=== PATIENT | male | born 1965 | race Caucasian/White ===

== ENCOUNTER 2016-08-17 18:18 | Observation (INO) | payer OTHER ==
[2016-08-17] MEDS ORDERED: NS 0.9% 1000 ML* 1,000 ML IV ONE (18:41)
[2016-08-17] MEDS ORDERED: HYDROmorphone* 1 MG/ML 1 ML SYR IV ONE (18:41)
[2016-08-17] MEDS ORDERED: Ondansetron INJ* 2 MG/ML VIAL IV ONE (18:41)
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
[2016-08-17] MEDS ORDERED: Tetan/Diph/Pertus SYR(Tdap)* 0.5 ML SYR(BOOSTRIX) use SYR IM ONE (20:45)
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
[2016-08-17] MEDS ORDERED: Ondansetron INJ* 2 MG/ML VIAL ONE (22:52)
[2016-08-17] MEDS ORDERED: Lidocaine 2% PF * 5 ML VIAL ONE (22:52)
[2016-08-17] MEDS ORDERED: Cisatracurium* 2 MG/ML MDV 5 ML ONE (22:52)
[2016-08-17] MEDS ORDERED: Propofol* 10 MG/ML 20 ML BTL IV PUSH ONE ×2 (22:52→23:32)
[2016-08-17] MEDS ORDERED: Ketorolac INJ* 30 MG/ML 1 ML VIAL ONE (22:52)
[2016-08-17] MEDS ORDERED: Midazolam* 1 MG/ML 5 ML VIAL (5 MG) ONE (22:52)
[2016-08-17] MEDS ORDERED: Dexamethasone IV* 4 MG/ML 1 ML (4 MG) ONE (22:52)
[2016-08-17] MEDS ORDERED: KETAMINE HCL* 50 MG/ML 10 ML VIAL ONE (22:52)
[2016-08-17] MEDS ORDERED: fentaNYL* 50 MCG/ML 5 ML VIAL (250 MCG VIAL) ONE (22:52)
[2016-08-17] MEDS ORDERED: ceFAZolin 2 GM PREMIX(*) 2 GM/50 ML BAG IVPB ONE (23:07)
[2016-08-17] MEDS ORDERED: Bacitracin IV* 50,000 UNITS INJ ONE (23:07)
[2016-08-17] MEDS ORDERED: EPHEDrine (Pressors)* 50 MG/ML VIAL ONE (23:41)
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
[2016-08-17] MEDS ORDERED: Glycopyrrolate IV* 0.2 MG/ML 1 ML VIAL ONE (23:56)
[2016-08-17] MEDS ORDERED: Neostigmine Methylsulfate* 2 MG/2 ML SYRINGE ONE (23:56)
[2016-08-17] MEDS ORDERED: HYDROmorphone* 1 MG/ML 1 ML SYR ONE (23:57)
[2016-08-18] MEDS ORDERED: Ondansetron INJ* 2 MG/ML VIAL IV PRN ×2 (00:38→07:52)
[2016-08-18] MEDS ORDERED: DiMENhydriNATE IV* 50 MG/ML VIAL IV PUSH PRN (00:38)
[2016-08-18] MEDS ORDERED: HYDROmorphone* 1 MG/ML 1 ML SYR IV PRN (00:38)
[2016-08-18] MEDS ORDERED: fentaNYL* 50 MCG/ML 2 ML VIAL (100 MCG VIAL) IV PRN (00:38)
[2016-08-18] MEDS ORDERED: oxyCODONE/Acetamin 5/325 MG* TAB PO PRN ×3 (01:28→08:09)
[2016-08-18] MEDS ORDERED: ZOSYN 3.375 GM Q8H per EXTENDED INFUSION IVPB SCH ×2 (02:00)
[2016-08-18] MEDS: ZOSYN 3.375 GM Q6H - Intermittant 30 min Infusion IVPB SCH ×8 (02:44→20:48)
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
[2016-08-18 05:53] LABS: Hematocrit 41 % (42-52); Hemoglobin 13.7 g/dl (14.0-18.0); Mean Corpuscular HGB Conc 33 g/dl (31-36); Mean Corpuscular Hemoglobin 30 pg (27-31); Mean Corpuscular Volume 90 fL (80-94); Mean Platelet Volume 9 um3 (7.4-10.4); Red Cell Distribution Width 12 % (10.5-15); White Blood Count 10.8 10^3/ul (3.5-10.8)
[2016-08-18 06:04] LABS: Albumin 3.6 g/dL (3.2-5.2); BUN/Creatinine Ratio 12.6 (8-20); Calcium 8.7 mg/dL (8.6-10.3); EGFR African American 89.8 (>60); EGFR Non-African American 69.8 (>60); Globulin 2.5 g/dL (2-4); Potassium 3.9 mmol/L (3.5-5.0); Total Bilirubin 0.6 mg/dL (0.2-1.0); Total Protein 6.1 g/dL (6.4-8.9)
[2016-08-18] MEDS: ceFAZolin VIAL(*) 1 GM in NS 0.9% 50 ML* 50 ML IVPB SCH ×3 (06:22→22:31)
--- NOTE | 2016-08-18 06:42 | HP ---
NO DICTATION. [id number]/[facility] #: [id number] [facility]
[2016-08-18] MEDS ORDERED: Morphine INJ* 4 MG/ML 1 ML SYRINGE IV PRN (07:52)
[2016-08-18] MEDS ORDERED: Ondansetron TAB* 4 MG PO PRN (07:52)
[2016-08-18] MEDS ORDERED: diPHENhydraMINE IV* 50 MG/ML 1 ml VIAL (BENADRYL) IV PRN (07:52)
[2016-08-18] MEDS ORDERED: Bisacodyl SUPP* 10 MG SUPP PR PRN (07:52)
[2016-08-18] MEDS ORDERED: Magnesium Hydroxide LIQ* 30 ML UDC PO PRN (07:52)
[2016-08-18] MEDS ORDERED: D5W 1/2 NS 1000 ML BAG* 1,000 ML IV SCH (08:00)
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
[2016-08-18] MEDS ORDERED: Enoxaparin(*) 30 MG/0.3 ML SYR SUBCUT SCH (09:00)
[2016-08-18] MEDS: Vitamin THERAPEUTIC TAB PO SCH (09:16)
[2016-08-18] MEDS: Docusate CAP* 100 MG PO SCH ×2 (09:16→20:44)
--- NOTE | 2016-08-18 09:24 | RAD ---
Indication: Left hand pain. 3 views of left hand demonstrates no fracture or dislocation. Joint spaces are well-preserved. There may be some minimal intercarpal degenerative changes between the scaphoid and trapezium. IMPRESSION: No definite fracture of the left hand is identified.
--- NOTE | 2016-08-18 09:25 | RAD ---
Indication: Left shoulder pain. 4 views of left shoulder demonstrates AC joint arthritis. There is no fracture or dislocation. No other bone or joint abnormality is identified. IMPRESSION: No fracture of the left hand is noted.
--- NOTE | 2016-08-18 09:25 | RAD ---
Indication: Left wrist injury. 2 views of left wrist demonstrates no fracture or dislocation. No other bone or joint abnormality is noted. There is a cast in the lateral aspect of the wrist which obscures bony detail. IMPRESSION: No fracture is definitively identified.
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
[2016-08-18] MEDS ORDERED: traMADol TAB* 50 MG PO PRN (11:34)
--- NOTE | 2016-08-18 12:06 | RAD ---
Indication: Preoperative planning for internal fixation LEFT elbow fracture. Limitation in extension. Comparison: August 17, 2016 radiographs. Technique: Noncontrast CT LEFT elbow. Multiplanar reformation. Report: Comminuted fracture through the trochlear notch and olecranon process of the ulna. Compound fracture with subcutaneous gas and gas intervening between the intra-articular fracture fragments of the olecranon. Additionally a piece of gauze extends into the fracture cleft. Up to 2.1 cm articular surface discontinuity due to distraction of the most posterior dorsal fragment of the olecranon process. No additional fracture evident. Negative for dislocation. Small volume of fluid and gas within the joint. IMPRESSION: Compound comminuted displaced intra-articular fracture involving the trochlear notch of the olecranon process of the ulna as described.
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
[2016-08-18] MEDS ORDERED: Heparin VIAL(*) 5000 UNITS/ML VIAL (FIVE THOUSAND) SUBCUT SCH (14:00)
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
[2016-08-18] MEDS ORDERED: Heparin VIAL(*) 5000 UNITS/ML VIAL (FIVE THOUSAND) SUBCUT ONE (22:00)
[2016-08-19] MEDS: ZOSYN 3.375 GM Q6H - Intermittant 30 min Infusion IVPB SCH ×4 (03:05→08:27)
[2016-08-19] MEDS: ceFAZolin VIAL(*) 1 GM in NS 0.9% 50 ML* 50 ML IVPB SCH (06:16)
[2016-08-19] MEDS: Vitamin THERAPEUTIC TAB PO SCH (07:21)
[2016-08-19] MEDS: Docusate CAP* 100 MG PO SCH (07:21)
[2016-08-19 07:47] LABS: Hematocrit 40 % (42-52); Hemoglobin 13.1 g/dl (14.0-18.0)
[2016-08-19 07:53] LABS: Calcium 8.6 mg/dL (8.6-10.3); EGFR African American 101.3 (>60); EGFR Non-African American 78.8 (>60)
[2016-08-19 08:32] VITALS: BP 139/92
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
--- NOTE | 2016-08-19 09:58 | PN ---
Progress Note - Progress Note SOAP: Subjective: Doing well. No fevers, sweats, chills. Not taking narcotics. Objective: NAD LUE: - Laceration closures intact - Small [place] drain in place - No drainage - Some skin erythema between lacerations consistent with partial thickness skin abrasion, but not cellulitis - Skin wrinkles, but skin quality at laceration sites looks inflamed, soft tissue clearly very inflamed - Displaced proximal olecranon fragment is not tenting the skin in any way - NVID - More comfortable for patient in more extended elbow position - Has small laceration on finger that is c/d/i Selected Entries 08/19/16 07:21 Temperature 98.0 F Pulse Rate 80 Respiratory 15 Rate Blood Pressure 139/92 (mmHg) O2 Sat by Pulse 98 Oximetry Laboratory Tests 08/19/16 07:09 Hct 40 L Assessment: POD 2 I&D L open olecranon fracture Plan: - No current sign of infection - Removed Kaushik drain - Redressed wound using [employer] over skin and placed a splint, posterior with sugar-tong component as well - NWB LUE in sling - I had scheduled ORIF for this morning when I was told of this patient yesterday. However, given the appearance of the soft tissue and skin, I prefer to wait for the soft tissues to heal to lower the possibility of wound complication and/or infection. Therefore, cancelled case for this morning. - Discharge home on oral antibiotics, Keflex 500 mg po 4x/day - Pain control - Tentative plan is for ORIF left olecranon on 08/25/16 - Splint will remain in place and kept dry
[2016-08-19] MEDS ORDERED: Acetaminophen TAB* 325 MG ONE (10:06)
[2016-08-19] MEDS ORDERED: Heparin VIAL(*) 5000 UNITS/ML VIAL (FIVE THOUSAND) SUBCUT SCH (14:00)
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
== END 2016-08-19 10:46 | disposition home or self-care (01) ==
LOC: ED 18:18 → OR 22:26 → INTOOBSV 08-18 01:40 → SSU 08-18 01:40
PROVIDERS: ADMIT Orthopaedic Surgery Adult Reconstructive Orthopaedic Surgery; ATTEND Orthopaedic Surgery Adult Reconstructive Orthopaedic Surgery
PROC: 0PSL0ZZ Reposition Left Ulna, Open Approach (ICD-10-PCS; principal; 2016-08-18)
DX: S52.022B Displaced fracture of olecranon process without intraarticular extension of left ulna, initial encounter for open fracture type I or II (principal); S01.82XA Laceration with foreign body of other part of head, initial encounter; S61.211A Laceration without foreign body of left index finger without damage to nail, initial encounter; S61.411A Laceration without foreign body of right hand, initial encounter; S61.412A Laceration without foreign body of left hand, initial encounter; S40.212A Abrasion of left shoulder, initial encounter; S80.212A Abrasion, left knee, initial encounter; S80.211A Abrasion, right knee, initial encounter; V18.0XXA Pedal cycle driver injured in noncollision transport accident in nontraffic accident, initial encounter; Y92.410 Unspecified street and highway as the place of occurrence of the external cause; Y93.55 Activity, bike riding; I10 Essential (primary) hypertension; Z23 Encounter for immunization; R94.31 Abnormal electrocardiogram [ECG] [EKG]; R00.0 Tachycardia, unspecified; I77.819 Aortic ectasia, unspecified site
CPT/HCPCS: 12001; 12011; 36415; 70450; 70486; 72125; 80048; 80053; 84484; 85014; 85018; 85025; 85610; 90471; 90715; 93005; 93306; 94760; 96365; 96372; 96375; 99283; A9270-GY; G0378; J0690; J1100; J1170; J1644; J1650; J1885; J2250; J2405; J2543; J2704; J3010

== ENCOUNTER 2016-08-24 16:47 | Observation (INO) | payer OTHER ==
[2016-08-24] MEDS ORDERED: fentaNYL* 50 MCG/ML 2 ML VIAL (100 MCG VIAL) ONE (17:39)
[2016-08-24] MEDS ORDERED: Midazolam* 1 MG/ML 2 ML VIAL (2 MG) ONE (17:39)
[2016-08-24] MEDS ORDERED: fentaNYL* 50 MCG/ML 2 ML VIAL (100 MCG VIAL) IV PRN (18:58)
[2016-08-24] MEDS ORDERED: HYDROmorphone* 1 MG/ML 1 ML SYR IV PRN (18:58)
[2016-08-24] MEDS ORDERED: DiMENhydriNATE IV* 50 MG/ML VIAL IV PUSH PRN (18:58)
[2016-08-24] MEDS ORDERED: Acetaminophen TAB* 325 MG PO PRN (19:54)
[2016-08-24] MEDS ORDERED: Ondansetron INJ* 2 MG/ML VIAL IV PRN (19:54)
[2016-08-24] MEDS ORDERED: oxyCODONE/Acetamin 5/325 MG* TAB PO PRN ×2 (19:54)
[2016-08-24] MEDS ORDERED: diPHENhydraMINE IV* 50 MG/ML 1 ml VIAL (BENADRYL) IV PRN (19:54)
[2016-08-24] MEDS ORDERED: Polyethylene Glycol 3350* 17 GM PACKET PO PRN (19:54)
[2016-08-24] MEDS ORDERED: oxyCODONE TAB* 5 MG TAB PO PRN (19:54)
[2016-08-24] MEDS ORDERED: Morphine INJ* 2 MG/ML 1 ML SYRINGE IV PRN (19:54)
[2016-08-25] MEDS: ceFAZolin VIAL(*) 1 GM in NS 0.9% 50 ML* 50 ML IVPB SCH ×2 (02:27→11:51)
[2016-08-25 06:33] LABS: Hematocrit 39 % (42-52); Hemoglobin 12.8 g/dl (14.0-18.0)
[2016-08-25 06:50] LABS: BUN/Creatinine Ratio 20.2 (8-20); Calcium 8.9 mg/dL (8.6-10.3); EGFR African American 108.8 (>60); EGFR Non-African American 84.6 (>60); Potassium 4.5 mmol/L (3.5-5.0)
--- NOTE | 2016-08-25 08:53 | PN ---
Hospitalist Progress Note Please see full consultation note. No active medical concerns. No contraindications to planned procedure. RCRI 0. No additional pre-operative intervention indicated at this time but would recommend treatment of HTN with PCP.
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
[2016-08-25] MEDS ORDERED: Famotidine IV* 10 MG/ML 2 ML (20 mg) IV SLOW PU ONE (15:27)
[2016-08-25] MEDS ORDERED: Dexamethasone IV* 8 MG in NS 0.9% 50 ML* 50 ML IVPB ONE (15:28)
[2016-08-25] MEDS ORDERED: Famotidine IV* 10 MG/ML 2 ML (20 mg) ONE (15:29)
[2016-08-25] MEDS ORDERED: Dexamethasone IV* 4 MG/ML 1 ML (4 MG) ONE (15:29)
[2016-08-25] MEDS ORDERED: HYDROmorphone* 1 MG/ML 1 ML SYR IV PRN (16:54)
[2016-08-25] MEDS ORDERED: oxyCODONE/Acetamin 5/325 MG* TAB PO PRN (16:54)
[2016-08-25] MEDS ORDERED: Ondansetron INJ* 2 MG/ML VIAL IV PRN (16:54)
[2016-08-25] MEDS ORDERED: fentaNYL* 50 MCG/ML 2 ML VIAL (100 MCG VIAL) IV PRN (16:54)
[2016-08-25] MEDS ORDERED: DiMENhydriNATE IV* 50 MG/ML VIAL IV PUSH PRN (16:54)
[2016-08-25] MEDS ORDERED: Bupivacaine 0.5% W/EPI SDV* 10 ML VIAL INJ ONE (17:05)
[2016-08-25 21:16] VITALS: BP 155/88
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
--- NOTE | 2016-08-28 04:20 | OP ---
DATE OF OPERATION: 08/25/16 - ROOM #331 DATE OF : 63 SURGEON: Hill Salmeron MD BUFFING WHEEL PRESSER: POWER Herrera ANESTHESIOLOGIST: Dr. Fady Amado. ANESTHESIA: General anesthesia, local anesthesia. PRE-OP DIAGNOSES: 1. Left open olecranon fracture. 2. Status post two open irrigation debridements, left open olecranon fracture. POST-OP DIAGNOSES: 1. Left open olecranon fracture. 2. Status post two open irrigation debridements, left open olecranon fracture. OPERATIVE PROCEDURE: Open reduction and internal fixation, left olecranon fracture. ANTIBIOSIS: 1 g Ancef IV, approximately 4 hours after the patient's last inpatient antibiotic dose of 1 g Ancef IV. IV FLUIDS: 1400 cc crystalloid. TOURNIQUET TIME: Approximately 135 minutes at 250 mmHg. COMPLICATIONS: None. SPECIMEN: None. IMPLANTS: Synthes olecranon locking plate with non locking and locking screws. ESTIMATED BLOOD LOSS: Minimal. INDICATIONS FOR PROCEDURE: The patient is a 50-year-old man, right hand dominant, who is now 8 days status post his injury and 1 day status post irrigation and debridement of the left elbow. There was no sign intraoperatively yesterday of left elbow infection. A Gram stain came back negative and cultures are negative at day 1 from that procedure. The patient received IV antibiotics overnight, Ancef 1 g q. 8 hours IV. Hospitalist saw the patient and cleared him for surgery. No additional workup was required. While I verbally discussed with the hospitalist attending the fact that no additional workup was required for the patient's presyncopal event in clinic, I do not see mention of that incident in hospitalist's note. DESCRIPTION OF PROCEDURE: Preoperative written consent. I discussed with the patient several times in clinic visits over the past week as well as when he was inpatient originally, risks, benefits, and complications of procedure, of thrombosis, blood vessel injury, a 20% rate of hardware removal because of prominent hardware, stiffness of the elbow, especially loss of elbow extension, and certainly the risk of infection being higher because of the open nature of his fracture as well as a slight increased risk of wound complications. For the last reason of potential for wound complication, the surgery was delayed after initially being scheduled for 2 days status post his injury. The patient was brought back to the operating room and placed supine on operating room table. He was sedated and intubated. The patient was placed in bilateral decubitus position with a banuelos bag insufflated. Axillary roll was placed, all bony prominences were well padded. A "Waldo" arm shirley was applied to the bed. The proximal left upper arm was rested on this arm shirley. A tourniquet was applied to the left upper arm proximally, but not yet inflated. The left upper extremity was prepped and draped. Surgical time-out was performed. The Esmarch was applied and the tourniquet was elevated. A cushioned Hinson stand was brought in and the arm was allowed to rest on it with the elbow in full extension. The stitches previously placed yesterday intraoperatively were removed. The stitches as well as the scissors and pickups , I used to remove them, were taken off the field not to be used again. The prep had been with Iodine scrub and paint. I studied the wound. The patient had 2 lacerations from the time of injury, one a fairly central near the olecranon tip and one vertical, but lateral about the proximal forearm. I krystin out an incision that would connect these two. While it was not straight posterior, it was close enough to straight posterior to enable good visualization. Aware that an absolutely straight posterior would lead to a 3 cm skin bridge that might lead to skin and soft tissue problems. I made my skin incision and continued dissection through subcutaneous tissue with dissection scissors. I came down onto the proximal ulna and olecranon. The incision was then extended proximal to the olecranon tip that allowed me good visualization of this displaced fracture fragment. With regards to the fracture, there was a clear transverse main fracture line at the inferior most part of the olecranon semilunar arch. There was also a segmental fragment medially that I had seen on CT imaging, but had been able to precisely define and shape this on CT. I opened up the fracture sites and debrided them well with a curette, a mini rongeur, and irrigation. Fortunately , there was not significant loose fragments of bone or depressed pieces of bone. I had had cancellous bone chips available for the case, but did not need to use them. I next digitally reduced the 3 bone fragments. I provisionally fixed them with K- wires, 2 placed from proximal to distal longitudinally, a third, I placed from medial to lateral through the segmental fracture fragment. I visualized the reduction with mini C-arm and it seemed adequate. Visually, it seemed fully lined up. I had removed some periosteum about the main fracture line laterally and centrally and that helped me see exactly how the bone reduced. Even with the loops on, it appeared perfectly reduced. Medially, soft tissue stripping had been more intense, because the energy of the injury was higher there and that had also well reduced. I had dissected with scissors, spreading , medially about the olecranon, being careful not to go too far anteriorly. I palpated, I saw a fat stripe, although I did not see the ulnar nerve well. I palpated it though. I was far from it. I next took the olecranon plate and fitted to the proximal ulna. The fit was good. I had to change the position of one of my K-wires to place the plate. I placed a non locking screw in oval hole distally. I did not tighten it all the way. I then placed a non locking screw all the way proximally. This brought the plate nicely down to bone. However, my screw was at the proximal most extent of its oval hole distally. Therefore, I removed that distal screw and placed a different non locking screw in compression mode. I placed that and noted that with the last bit of compression, it now reduced the bone by a mm. Therefore, I loosened it and re- reduced the bone excellently. I next filled the plate with screws, distally and proximally. I placed 4 screws distally and 4 screws proximally. One of the proximal screws, I was able to direct using the polyaxial capability of these screws, directly into the meat of the medial sided segmental fracture fragment. On mini C-arm imaging, the reduction continued to appear to look excellent. I was somewhat shortened unicortical with my screws proximally and distally, but felt that given the jean nature of the bone and the locking nature of the screws that this was sufficient fixation for this fracture. It should be noted that prior to placing the plate, I split the triceps tendon longitudinally to get the proximal aspect of the plate directly down on bone. I took final films of the elbow, both AP and lateral. Irrigation. I then closed the fascia, FCU to anconeus, and periosteum over the plate using [id number] stitches using 0 Vicryl suture. I used the same suture material to place [id number] stitches and repair the triceps over the plate proximally. The plate was mostly covered except for just distal to the tip of the olecranon, where there was not much deep fascia to cover. I next closed the subcutaneous tissue with buried simple stitches using Vicryl 2.0 suture. I closed the skin with tania. Adaptic, 4 x 4s, sterile Webril, non sterile Webril, splinted the elbow in 45 degrees of flexion with a posterior splint with a sugar tong. I placed 5 cc of Marcaine 0.5% with epinephrine about the wound. This was done prior to the dressing being placed and then splint. The patient was returned to the supine position, awakened and extubated. DISPOSITION: The patient will follow up in 7 to 10 days. He will keep the splint in place. Keflex antibiotics, Percocet for pain control, and aspirin for DVT prophylaxis. The patient is to call me on my cell phone or come to clinic if he develops increased left elbow pain, severe, or fever, sweats, chills or temperature. [id number]/[facility] #: [id number] MTDD
== END 2016-08-25 20:10 | disposition home or self-care (01) ==
LOC: OR 16:47 → SSU 20:50 → INTOOBSV 20:50
PROVIDERS: ADMIT Orthopaedic Surgery; ATTEND Orthopaedic Surgery
PROC: 0PSL04Z Reposition Left Ulna with Internal Fixation Device, Open Approach (ICD-10-PCS; principal; 2016-08-24 17:00)
DX: S52.022B Displaced fracture of olecranon process without intraarticular extension of left ulna, initial encounter for open fracture type I or II (principal); V19.9XXA Pedal cyclist (driver) (passenger) injured in unspecified traffic accident, initial encounter; Y92.410 Unspecified street and highway as the place of occurrence of the external cause; I10 Essential (primary) hypertension; R73.9 Hyperglycemia, unspecified
CPT/HCPCS: 36415; 76000; 80048; 83036; 85014; 85018; 87070; 87073; 87205; G0378; J0690; J1100; J2250; J3010

== ENCOUNTER 2016-11-18 15:00 | Emergency (ER) | payer OTHER ==
[2016-11-18 15:20] VITALS: BP 156/106
[2016-11-18] MEDS ORDERED: Lidocain 1% EPI 1:100,000 * 30 ML MDV INJ ONE ×2 (15:43→15:49)
--- NOTE | 2016-11-18 15:48 | UC ---
Laceration HPI - History Of Current Complaint Chief Complaint: UCLaceration Stated Complaint: HEAD LACERATION Time Seen by Provider: 11/18/16 15:24 Hx Obtained From: Patient Laceration Location: Head Mechanism Of Injury: Sharp Trauma Onset/Duration: Sudden Onset - ducked under beam and head of a nail cut top of his head Severity: Mild Aggravating Factors: Other: - touch - Allergies/Home Medications Allergies/Adverse Reactions: Allergies Allergy/AdvReac Type Severity Reaction Status Date / Time No Known Drug Allergy Allergy Unknown Verified 11/18/16 15:20 Reaction Details PMH/Surg Hx/FS Hx/Imm Hx Previously Healthy: Yes - Surgical History Surgical History: Yes Surgery Procedure, Year, and Place: 08/18/16 I&D of elbow for compound fracture. 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 Lives: With Family Alcohol Use: Daily Alcohol Amount: 4-6 Substance Use Type: None Smoking Status (MU): Never Smoked Tobacco - Immunization History Most Recent Influenza Vaccination: none Most Recent Tetanus Shot: 08/17/16 Most Recent Pneumonia Vaccination: never Review of Systems Constitutional: Negative Respiratory: Negative Cardiovascular: Negative Musculoskeletal: Negative Neurological: Negative Psychological: Negative Is Patient Immunocompromised?: No All Other Systems Reviewed And Are Negative: Yes Physical Exam Triage Information Reviewed: Yes Appearance: Well-Appearing, No Pain Distress, Well-Nourished Vital Signs: Initial Vital Signs Temp 98.2 F 11/18/16 15:15 Pulse 90 11/18/16 15:15 Resp 18 11/18/16 15:15 BP 156/106 11/18/16 15:15 Pulse Ox 99 11/18/16 15:15 Vital Signs Reviewed: Yes Eye Exam: Normal Eyes: Positive: Conjunctiva Clear Neck exam: Normal Neck: Positive: Supple Respiratory Exam: Normal Cardiovascular Exam: Normal Neurological Exam: Normal Neurological: Positive: Alert Psychological Exam: Normal Skin: Negative: rashes Laceration Repair - Laceration Repair 1 Description: Irregular Laceration Size After Repair: Length (cm) - 2, Width (mm) - 3, Depth (mm) - 3 Modified For Repair: No Type Injection: Local Anesthesia Used: 1.0% Lido Additive Used (in ml): Epi Cleansing Completed Via Routine Prep: Yes Closure Material: Orient - 3 Laceration Course/Dx - Differential Dx - Laceration/Wound Differental Diagnoses: Abrasion, Avulsion, Laceration Provider Diagnoses: scalp laceration Discharge - Discharge Plan Condition: Good Disposition: HOME Patient Education Materials: Staple Care (ED), Laceration (ED) Additional Instructions: keep wound clean and dry (you may shower as usual) ibuprofen 600mg as needed for pain Return for staple removal 10 days
[2016-11-18] MEDS ORDERED: Lidocaine 2% W/EPI 1:100,000* 20 ML MDV ONE (15:55)
== END 2016-11-18 16:18 | disposition home or self-care (01) ==
LOC: UCEAST 15:00
DX: S01.01XA Laceration without foreign body of scalp, initial encounter (principal); W22.09XA Striking against other stationary object, initial encounter; Y93.9 Activity, unspecified; Y92.9 Unspecified place or not applicable
CPT/HCPCS: 12001; 99211; G0463

== ENCOUNTER 2016-11-29 15:40 | Emergency (ER) | payer OTHER ==
--- NOTE | 2016-11-29 15:41 | UC ---
HPI Wound/Suture Re-check - HPI Summary HPI Summary: 50 YEAR OLD MALE PRESENTS FOR REMOVAL OF LORAINE ON ANTERIOR SCALP LACERATION < 2.5 CM . - History Of Current Complaint Stated Complaint: SUTURE REMOVAL Time Seen by Provider: 11/29/16 15:41 Hx Obtained From: Patient Onset/Duration: Lasting Days Severity: Mild Pain Scale Used: 0-10 Numeric - 0 - Allergies/Home Medications Allergies/Adverse Reactions: Allergies Allergy/AdvReac Type Severity Reaction Status Date / Time No Known Drug Allergy Allergy Unknown Verified 11/29/16 15:45 Reaction Details PMH/Surg Hx/FS Hx/Imm Hx Previously Healthy: Yes - Surgical History Surgical History: Yes Surgery Procedure, Year, and Place: 08/18/16 I&D of elbow for compound fracture. 08/24/16 I&D of left elbow in prep for ORIF on 08/25/16 - Family History Known Family History: Positive: Cardiac Disease, Hypertension Negative: Diabetes - Social History Alcohol Use: Daily Alcohol Amount: 4-6 Substance Use Type: None Smoking Status (MU): Never Smoked Tobacco - Immunization History Most Recent Influenza Vaccination: none Most Recent Tetanus Shot: 08/17/16 Most Recent Pneumonia Vaccination: never Review of Systems Constitutional: Negative Skin: Other - ANTERIOR FOREHEAD LACERATION WITH LORAINE C/D/I Eyes: Negative ENT: Negative Respiratory: Negative Cardiovascular: Negative Gastrointestinal: Negative Genitourinary: Negative Motor: Negative Neurovascular: Negative Musculoskeletal: Negative Neurological: Negative Psychological: Negative All Other Systems Reviewed And Are Negative: Yes Physical Exam Triage Information Reviewed: Yes Vital Signs Reviewed: Yes Eye Exam: Normal ENT Exam: Normal Dental Exam: Normal Neck exam: Normal Neck: Positive: 1 Respiratory Exam: Normal Cardiovascular Exam: Normal Abdominal Exam: Normal Musculoskeletal Exam: Normal Neurological Exam: Normal Psychological Exam: Normal Skin: Positive: Other - ANTERIOR FOREHEAD LACERATION WITH LORAINE. Course/Dx - Differential Dx - Laceration/Wound Provider Diagnoses: ANTERIOR SCALP LACERATION STAPLE REMOVAL # 3 Discharge - Discharge Plan Condition: Stable Disposition: HOME Patient Education Materials: Care For Your Stitches (ED), Stitches Removal (ED) Referrals: Shabbir Rose MD [Primary Care Provider] -
[2016-11-29 15:54] VITALS: BP 146/100
== END 2016-11-29 16:03 | disposition home or self-care (01) ==
LOC: UCEAST 15:40
DX: Z48.02 Encounter for removal of sutures (principal)
CPT/HCPCS: 99211; G0463